=== PATIENT | male | born 1955 | race African-American/Black ===

== ENCOUNTER 2019-08-30 00:28 | Emergency (ER) | payer OTHER ==
[~2019-08-30] VITALS: Ht 182.9 cm; Wt 97.5 kg
[2019-08-30] MEDS ORDERED: CYCLOBENZAPRINE5 MG PO (02:50)
[2019-08-30] MEDS ORDERED: MOBIC15 MG PO (02:50)
[2019-08-30] MEDS ORDERED: NORCO 5-325 TA1 EAC1 PO (02:50)
[2019-08-30 03:10] VITALS: BP 127/72
== END 2019-08-30 03:13 | disposition home or self-care (01) ==
LOC: ER 00:28
DX: M46.1 Sacroiliitis, not elsewhere classified (principal); M54.2 Cervicalgia; I25.2 Old myocardial infarction; Z88.0 Allergy status to penicillin; V49.59XA Passenger injured in collision with other motor vehicles in traffic accident, initial encounter; Y93.89 Activity, other specified; Y92.413 State road as the place of occurrence of the external cause; Y99.9 Unspecified external cause status